=== PATIENT | male | born 1960 | race Caucasian/White ===

== ENCOUNTER → 2017-05-21 | Outpatient (CLI) | payer BC ==
--- NOTE | 2017-05-21 09:16 | Diagnostic Imaging Report ---
PROCEDURE: CT urinary tract, rule out kidney stone. TECHNIQUE: Multiple contiguous axial images were obtained through the abdomen and pelvis without the use of intravenous contrast. INDICATION: Pelvic pressure and microhematuria. Comparison is made with prior CT from 08/18/2007. The lung bases are clear. The liver and gallbladder are unremarkable. The pancreas and spleen are unremarkable. No adrenal mass is identified. There is a tiny nonobstructing calculus in the left kidney. No hydronephrosis is identified. No ureteral calculi are seen. The bladder is unremarkable. The aorta is nonaneurysmal. The small and large bowel loops are normal caliber. There is a small fat-containing umbilical hernia. The appendix is unremarkable. There is no ascites. Prostate is unremarkable. 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 IMPRESSION: 1. Tiny nonobstructing left renal calculus. 2. Small fat-containing umbilical hernia. Dictated by: Dictated on workstation # [id number]
== END ==
LOC: RAD 08:31
PROVIDERS: ATTEND Internal Medicine
DX: K42.9 Umbilical hernia without obstruction or gangrene (principal); R31.9 Hematuria, unspecified
CPT/HCPCS: 74176

== ENCOUNTER → 2020-11-28 | Outpatient (CLI) | payer BC ==
[~2020-11-28] VITALS: Ht 177.8 cm; Wt 126.3 kg
[~2020-11-28] MED LIST: EMPA1TAB7 PO; OLME1TAB28 PO; ROSU10TA28 PO
== END | disposition home or self-care (01) ==
LOC: PREOP 05:31
PROVIDERS: ATTEND Internal Medicine
DX: Z01.818 Encounter for other preprocedural examination (principal)